=== PATIENT | female | born 1980 | race Caucasian/White ===

== ENCOUNTER → 2018-01-11 | Outpatient (CLI) | payer OTHER ==
[~2018-01-11] MED LIST: BCPILLS PO; TRAM-10 PO
== END | disposition home or self-care (01) ==
LOC: C.RDSM 19:01
PROVIDERS: ATTEND Orthopaedic Surgery
DX: R52 Pain, unspecified (principal)

== ENCOUNTER → 2018-07-05 | Outpatient (CLI) | payer OTHER ==
--- NOTE | 2018-07-05 15:47 | DIAGNOSTIC IMAGING REPORT ---
CERVICAL WITHOUT CONTRAST HISTORY: Pain. Neuropathy. CERVICAL RADICULOPATHY TECHNIQUE: Multiplanar multisequence MRI of the cervical spine was performed without the use of contrast. COMPARISON STUDY: None. FINDINGS: Signal characteristics of the vertebral bodies are unremarkable. Minimal disc desiccation. Signal characteristics the cervical cord are unremarkable. C2-C3: No significant central canal or neural foraminal narrowing. C3-C4: No significant central canal or neural foraminal narrowing. C4-C5: No significant central canal or neural foraminal narrowing. C5-C6: Mild broad-based disc herniation with a more focal left posterior component. This creates significant narrowing left neuroforamina with minimal impact anterior aspect of the cervical cord. Right neuroforamina is patent. C6-C7: No significant central canal or neural foraminal narrowing. C7-T1: No significant central canal or neural foraminal narrowing. IMPRESSION: 1. Left central broad-based disc herniation C5-C6 with a more focal left posterior disc narrowing left neuroforamina. 2. Otherwise negative cervical spine. The above report was generated using voice recognition software. It may contain grammatical, syntax or spelling errors. Electronically signed by: Foster Peraza M.D. 07/05/2018 3:46 PM Dictated Date/Time: 07/05/2018 3:41 PM
== END | disposition home or self-care (01) ==
LOC: C.MRIBC 14:12
PROVIDERS: ATTEND Orthopaedic Surgery
DX: M54.2 Cervicalgia (principal); M54.12 Radiculopathy, cervical region; M50.20 Other cervical disc displacement, unspecified cervical region